=== PATIENT | female | born 1995 | race Caucasian/White ===

== ENCOUNTER 2018-12-31 17:38 | Emergency (ER) | payer MEDICAID ==
[~2018-12-31] VITALS: Ht 157.5 cm; Wt 50.0 kg
[~2018-12-31 17:38] MED LIST: BISA-155 PO; POLY119P2 PO
[2018-12-31] MEDS ORDERED: LORazepam 2 mg/ml vial IM ONE (17:45)
--- NOTE | 2018-12-31 17:57 | NUR ---
COULD NOT PREFORM EKG WITHIN 10 MIN FOR CHEST PAIN CAUSE PT WOULD NOT SIT STILL. COULD NOT GET A READING
[2018-12-31 19:26] VITALS: BP 112/71
== END 2018-12-31 19:28 | disposition home or self-care (01) ==
LOC: ER 17:38
DX: F41.0 Panic disorder [episodic paroxysmal anxiety] (principal); F32.9 Major depressive disorder, single episode, unspecified; F12.90 Cannabis use, unspecified, uncomplicated; Z79.899 Other long term (current) drug therapy
CPT/HCPCS: 96372; 99284; J2060

== ENCOUNTER 2019-01-08 14:14 | Emergency (ER) | payer MEDICAID ==
[~2019-01-08] VITALS: Ht 157.5 cm; Wt 50.0 kg
[2019-01-08 14:39] VITALS: BP 124/81
[2019-01-08] MEDS ORDERED: ondansetron 4mg rapidly disintigrating tab PO ONE (14:50)
[2019-01-08] MEDS ORDERED: LORazepam 1 MG tablet PO ONE (14:50)
[2019-01-08] MEDS ORDERED: LORA1TAB PO (14:50)
[2019-01-08] MEDS ORDERED: ONDA4TAB12 PO (14:52)
== END 2019-01-08 15:35 | disposition home or self-care (01) ==
LOC: ER 14:15
DX: F41.9 Anxiety disorder, unspecified (principal); F32.9 Major depressive disorder, single episode, unspecified; F12.90 Cannabis use, unspecified, uncomplicated; Z79.899 Other long term (current) drug therapy
CPT/HCPCS: 99284

== ENCOUNTER 2019-01-21 18:11 | Emergency (ER) | payer MEDICAID ==
[~2019-01-21] VITALS: Ht 157.5 cm; Wt 46.8 kg
[~2019-01-21 18:11] MED LIST changes: +LORA1TAB PO; +ONDA4TAB12 PO
[2019-01-21] MEDS ORDERED: LORazepam 1 MG tablet PO ONE (18:50)
[2019-01-21 19:15] VITALS: BP 119/87
== END 2019-01-21 19:16 | disposition home or self-care (01) ==
LOC: ER 18:12
DX: R11.2 Nausea with vomiting, unspecified (principal); F41.9 Anxiety disorder, unspecified; F32.9 Major depressive disorder, single episode, unspecified; F12.90 Cannabis use, unspecified, uncomplicated
CPT/HCPCS: 93005; 99283; 99284

== ENCOUNTER 2019-04-03 12:26 | Emergency (ER) | payer MEDICAID ==
[~2019-04-03] VITALS: Ht 172.7 cm; Wt 90.0 kg
[~2019-04-03 12:26] MED LIST changes: -LORA1TAB PO
--- NOTE | 2019-04-03 13:55 | NUR ---
DR CAVANAUGH AT BEDSIDE TO EVAL PT. PT IS VERY TEARFUL, C/O HANDS, ARMS AND LEGS CRAMPING, "MENTAL HEALTH THERAPIST SENT ME TO ER FOR DEHYDRATION", DIZZINESS
[2019-04-03 13:57] VITALS: BP 119/63
--- NOTE | 2019-04-03 13:58 | NUR ---
PT DENIES THOUGHTS/PLAN OF SUICIDE/HURTING HERSELF
--- NOTE | 2019-04-03 13:59 | NUR ---
PT DOES ADMIT TO NOT EATING ENOUGH AND THROWING UP AFTER EATING SOMETIMES
[2019-04-03] MEDS ORDERED: ondansetron/PF 4mg/2ml inj IV ONE (14:05)
[2019-04-03] MEDS ORDERED: normal saline 1000ML IV soln IVB ONE ×2 (14:05)
[2019-04-03] MEDS ORDERED: LORazepam 2 mg/ml vial IV ONE (14:05)
[2019-04-03] MEDS ORDERED: pantoprazole 40 MG vial IV ONE (14:05)
--- NOTE | 2019-04-03 14:18 | NUR ---
PT IS RESTING QUIETLY, 1ST LITER NS INFUSING W/O
--- NOTE | 2019-04-03 14:33 | NUR ---
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
[2019-04-03 14:46] LABS: BASOPHILS % (AUTO) 0.2 % (0-1); EOSINOPHILS % (AUTO) 0.6 % (0-6); HEMATOCRIT 41.3 % (35.0-45.0); HEMOGLOBIN 13.9 g/dl (12.0-16.0); LYMPHOCYTES # (AUTO) 1.4 X10'3 (1.1-4.8); LYMPHOCYTES % (AUTO) 18.3 % (21-51); MEAN CORPUSCULAR HEMOGLOBIN 31.8 PG (27.0-31.0); MEAN CORPUSCULAR HGB CONC 33.6 g/dL (33.0-36.5); MEAN CORPUSCULAR VOLUME 94.6 FL (78-98); MEAN PLATELET VOLUME 8.4 FL (7.4-10.4); MONOCYTES # (AUTO) 0.6 X10'3 (0-0.9); MONOCYTES % (AUTO) 7.4 % (2-12); NEUTROPHILS # (AUTO) 5.8 X10'3 (1.8-7.7); NEUTROPHILS % (AUTO) 73.5 % (42-75); PLATELET COUNT 211 X10'3 (140-440); RED BLOOD COUNT 4.37 X10'6 (4.20-5.60); RED CELL DISTRIBUTION WIDTH 13.1 % (11.5-14.5); WHITE BLOOD COUNT 7.9 X10'3 (4.5-11.0)
[2019-04-03 14:52] LABS: ALANINE AMINOTRANSFERASE 34 U/L (12-78); ALBUMIN 4.1 G/DL (3.4-5.0); ALBUMIN/GLOBULIN RATIO 1.4 (1.1-1.5); ALKALINE PHOSPHATASE 37 IU/L (46-116); ANION GAP 9 (8-16); ASPARTATE AMINO TRANSFERASE 28 U/L (10-37); BILIRUBIN,TOTAL 0.6 MG/DL (0.1-1.0); BLOOD UREA NITROGEN 8 MG/DL (7-18); CALCIUM 9.2 MG/DL (8.5-10.1); CHLORIDE 106 MMOL/L (99-107); CREATININE 0.73 MG/DL (0.40-0.90); GLUCOSE 86 MG/DL (70-104); POTASSIUM 3.5 MMOL/L (3.5-5.1); SODIUM 141 MMOL/L (135-145); TOTAL CARBON DIOXIDE 26.1 MMOL/L (24-32); TOTAL PROTEIN 7.1 G/DL (6.4-8.2); eGFR > 90 ML/MIN
[2019-04-03 14:57] LABS: HCG SERUM QL NEGATIVE
[2019-04-03] MEDS ORDERED: ESOMEPRAZOLE 40 MG VIAL IV ONE (15:15)
--- NOTE | 2019-04-03 15:27 | NUR ---
Pt states she is feeling better than when she arrived. Pt denies any SI or HI.
== END 2019-04-03 16:33 | disposition home or self-care (01) ==
LOC: ER 12:27
DX: R29.0 Tetany (principal); E86.0 Dehydration; R06.4 Hyperventilation; R10.13 Epigastric pain; F41.9 Anxiety disorder, unspecified; F43.10 Post-traumatic stress disorder, unspecified; F32.9 Major depressive disorder, single episode, unspecified; F17.200 Nicotine dependence, unspecified, uncomplicated; F12.90 Cannabis use, unspecified, uncomplicated; Z79.899 Other long term (current) drug therapy
CPT/HCPCS: 36415; 80053; 82306; 84439; 84443; 84703; 85025; 93005; 96374; 96375; 99284; J2060; J2405; J7030